=== PATIENT | male | born 1930 | race Caucasian/White ===

== ENCOUNTER 2017-07-05 12:53 | Inpatient (IN) ==
[2017-07-05] MEDS ORDERED: ONDANSETRON 4 MG/2 ML VIAL IV STA (13:15)
[2017-07-05] MEDS ORDERED: HYDROmorphone 2 MG/1 ML VIAL IV STA ×2 (13:19→14:37)
[2017-07-05] MEDS ORDERED: ONDANSETRON 4 MG/2 ML VIAL ONE (13:48)
[2017-07-05] MEDS ORDERED: HYDROmorphone 2 MG/1 ML VIAL ONE ×2 (13:49→14:58)
--- NOTE | 2017-07-05 13:49 | CT Report ---
CT of the head without contrast. Indication: Headache. There is calcific plaque present within the intracranial internal carotid arteries and vertebral arteries. There is mild mucosal thickening within the ethmoid and sphenoid sinuses. There is generalized prominence of the ventricles and sulci consistent with atrophy of aging. There is bilateral basal ganglial calcification. There are moderate areas of low density within the periventricular white matter. No mass effect or midline shift. There is a lacunar infarct within the left posterior internal capsule. No cortical infarcts are visible. There is no evidence of acute hemorrhage. Impression: Moderate changes of chronic microvascular ischemia. Remote left internal capsule lacunar infarct. Mild paranasal sinus disease. The CT exam was performed using one or more of the following dose reduction techniques: Automated exposure control, adjustment of the mA and/or kV according to patient size, or use of iterative reconstruction technique. PROCEDURE INTERPRETED AT [facility] DEPARTMENT OF RADIOLOGY Final Report Signed by: Dr. Huyen Khan
--- NOTE | 2017-07-05 13:54 | CT Report ---
CT of the cervical spine without contrast. Indication: Neck pain. Axial images were obtained with sagittal and coronal 2-D reconstructions. No previous study. The appearance of the craniovertebral junction is within normal limits. There is bilateral carotid bifurcation calcification. The normal curvature and alignment of the cervical spine is demonstrated. The osseous structures are diffusely demineralized. There is prominent multilevel facet arthropathy, worse to the left. At C2-C3, there is posterior disc bulging and calcification in the anterior longitudinal ligament. At C3-C4, there is loss of disc space height posteriorly. There is anterior osteophyte formation and posterior disc bulging with osteophytes and disc calcification. At the 4-C5, there is exuberant anterior osteophyte formation, loss of disc space height, degenerative endplate change, mild posterior osteophyte formation and posterior disc bulging. There is bony neural foraminal narrowing bilaterally. At C5-C6, there is almost complete loss of disc space height, degenerative endplate change, and bridging osteophytes. At C6-C7, there is almost complete loss of disc space height, anterior and posterior osteophyte formation, and calcification in the anterior longitudinal ligament. There is right bony neural foraminal narrowing. At C7-T1 and T1-T2, there is exuberant anterior osteophyte formation. There is calcified disc bulging at the upper thoracic levels. No evidence of fracture or facet dislocation. Impression: Prominent multilevel spondylitic disease. The CT exam was performed using one or more of the following dose reduction techniques: Automated exposure control, adjustment of the mA and/or kV according to patient size, or use of iterative reconstruction technique. PROCEDURE INTERPRETED AT [facility] DEPARTMENT OF RADIOLOGY Final Report Signed by: Dr. Huyen Khan
[2017-07-05 14:42] LABS: Basophils % 0.2 % (0.0-0.8); Hematocrit 44.4 VOL% (42.0-52.0); Hemoglobin 14.9 GM/DL (14.0-18.0); Immature Granulocytes % 0.6 %; Immature Granulocytes Absolute 0.07 #; Lymphocytes # 0.7 10*3/uL (1.4-4.0); Lymphocytes % 6.4 % (21.2-54.2); Mean Corpuscular HGB Conc 33.6 GM/DL (32-36); Mean Corpuscular Hemoglobin 33 PG (27-34); Mean Corpuscular Volume 98.7 FL (87-102); Mean Platelet Volume 10.3 FL (9.6-12.0); Monocytes # 0.8 10*3/uL (0.11-0.8); Monocytes % 7.2 % (1.7-12.7); Neutrophils # 9.6 10*3/uL (1.4-7.4); Neutrophils % 85.6 % (38.7-73.9); Platelet Count 123 T/CUMM (130-400); Red Cell Distribution Width 12.4 % (9.3-17.3); White Blood Count 11.2 T/CUMM (4-12)
[2017-07-05 14:54] LABS: Calcium 9.4 MG/DL (8.5-10.1); Osmolality,Calculated 281.7 MOS/KG (273-304)
[2017-07-05] MEDS ORDERED: VANCOMYCIN INJ 1,000 MG in SODIUM CHLORIDE 0.9% 250 ML IV STA (15:15)
[2017-07-05] MEDS ORDERED: LEVOFLOXACIN INJ 500 MG in PREMIX 1 EACH IV STA (15:15)
[2017-07-05] MEDS ORDERED: ONDANSETRON 4 MG/2 ML VIAL IV PRN (15:35)
--- NOTE | 2017-07-05 15:35 | Emergency Department Note ---
Jossue Duque Brittany, am scribing for, and in the presence of, Bashir Shi MD 13:22. Jose Guadalupe Duque Doug C, MD, personally performed the services described in this documentation, ascribed by Mary Lou Marcum in my presence, and it is both accurate and complete [id number] . Arrival - Arrival Chief Complaint: Neck Pain / Injury Stated Complaint: NOT ABLE TO MOVE HEAD ED Nursing Triage Note: c/o not being able to move neck and neck pain. states that yesterday patient had some n/v and chills. She states during the night he got to where he couldn't move neck. Mode of Arrival: Wheelchair Limitations: No Limitations Source: Patient, RN Notes Reviewed Time Seen by Provider: 07/05/17 13:14 - History of Present Illness HPI Narrative: Patient 86-year-old white male presents to emergency room complaining of severe left neck pain that started last night. states that he had some fever and chills yesterday his neck pain seems to follow this. Patient denies any falls or injuries. He has noticed some tingling and weakness in his left upper extremity. He does have a history of cervical disc disease and lumbar disc disease. He denies any difficulty with bowel or bladder problems. He has not had any urinary symptoms and states is not having any respiratory symptoms that may be contributing to his fever. Onset (ago): day(s) (1) Consistency: constant Severity: severe Severity scale (1-10): 9 Quality: aching Allergies/Adverse Reactions: Allergies Allergy/AdvReac Type Severity Reaction Status Date / Time No Known Allergies Allergy Unverified 07/05/17 13:00 Review of System - Review of System 12 point system: reviewed and no additional remarkable complaints except as stated - Review of System Constitutional: Present: chills, fever, weakness Eyes: Absent: vision change Head/Ears/Nose/Throat: Absent: nasal drainage, sore throat Respiratory: Absent: respiratory distress Cardiovascular: Absent: chest pain Gastrointestinal: Absent: abdominal pain, nausea, vomiting, diarrhea, constipation Genitourinary male: Absent: urgency, dysuria, frequency Musculoskeletal: Present: back pain, neck pain Skin: Absent: rash Neurological: Present: paresthesias (L arm). Absent: headache Psychiatric: Absent: anxiety, depression Hematological/Lymphatic: Absent: easy bleeding, easy bruising Medical,Surgical,& Family Hx - Medical History Cardio: History of: Hypertension Musculoskeletal: History of: Back/Neck Problems, Musculoskeletal Problems (hx dvt) - Surgical History Surgical History: noncontributory - Family History Family History: noncontributory - Social History Smoking Status: Never smoker Frequency of Alcohol Use: None Type of Drug Use: None Exam Vital Signs: Vital Signs Temperature 99.1 F 07/05/17 14:18 Pulse Rate 75 07/05/17 14:18 Respiratory Rate 18 07/05/17 14:18 Blood Pressure 170/108 07/05/17 14:18 O2 Sat by Pulse Oximetry 96 07/05/17 12:56 - General General appearance: alert, in distress (appears uncomfortable secondary to pain) - Head Head exam: Present: atraumatic, normocephalic, normal inspection - Eye Eye exam: Present: normal appearance, PERRL, EOMI - ENT ENT exam: Present: normal exam, normal oropharynx - Neck Neck exam: Present: trachea midline, tenderness (TTP at the left ). Absent: full ROM (limited secondary to pain) - Chest Chest inspection: Present: normal inspection, symmetric chest wall rise - Respiratory Respiratory exam: Present: normal lung sounds bilaterally. Absent: respiratory distress - Cardiovascular Cardiovascular exam: Present: regular rate, normal rhythm, normal heart sounds. Absent: murmur, rubs, gallop - Abdominal Exam Abdominal exam: Present: soft, normal bowel sounds. Absent: tenderness - Extremities Exam Extremities exam: Absent: normal inspection (decreased fiscal services manager on the left compared to the right) - Back Exam Back exam: Present: normal inspection - Neurological Exam Neurological exam: Present: alert, oriented X3, CN II-XII intact, motor sensory deficit (decreased fiscal services manager on the left compared to the right) - Psychiatric Psychiatric exam: Present: normal affect, normal mood - Skin Skin exam: Present: warm, dry Course Course Narrative: Patient's clinical presentation, laboratory and radiographic findings were discussed with Dr. Dowell. Patient be admitted an MRI will be ordered. Cultures and IV antibiotics were given. Results - Labs CBC & BMP: 07/05/17 14:29 07/05/17 14:29 Lab Results: I have reviewed the patients labs Labs: Laboratory Tests 07/05/17 14:29 WBC 11.2 RBC 4.50 Hgb 14.9 Hct 44.4 Plt Count 123 L Neut % (Auto) 85.6 H Lymph % (Auto) 6.4 L Neut # (Auto) 9.6 H Lymph # (Auto) 0.7 L Laboratory Tests 07/05/17 14:29 Sodium 138 Potassium 4.0 Chloride 104 Carbon Dioxide 28 BUN 26 H Creatinine 1.50 H Glucose 126 H C-Reactive Protein 12.10 H - Diagnostic Findings Procedure: CT: report reviewed by me (CT Head: Moderate changes of chronic microvascular ischemia. Remote left internal capsule lacunar infarct. Mild paranasal sinus disease. Cervical Spine CT: Prominent multilevel spondylitic disease.) Disposition Clinical Impression: Cervical pain (neck), Febrile illness, acute Case discussed with: patient, patient's family Disposition: Still a Patient Condition: Guarded Time of Disposition: 15:35
[2017-07-05 15:38] LABS: INR 1.9; PT Patient Result 20.5 SECS
[2017-07-05 15:51] LABS: Sedimentation Rate-Westergren 40 MM/HR (0-20)
--- NOTE | 2017-07-05 16:03 | Family Practice History&Phys ---
Assessment and Plan (1) Cervical pain (neck) Status: Acute Assessment and plan: severe, getting IV pain meds, MRI c-spine, 2. febrile illness, on Iv Abx, blood cx drawn, 3. HTN, bp high, add norvasc and prn IV hydralazine Current Visit: Yes (2) Febrile illness, acute Status: Acute Current Visit: Yes (3) Hypertension, essential Status: Acute Current Visit: Yes (4) Chronic back pain Status: Chronic Current Visit: Yes History of Present Illness Chief complaint: severe neck pain History of present illness: Mr. Spangler is a 86 year old male PCP: , pt was brought in by the to ER, for severe neck pain since yesterday PM, got worse this Am, pt is unable to move the neck cause of pain, is 10/10 in intensity, does not give any recent neck trauma or head trauma, had fever with chills and sweating, had nausea and vomiting,also has lt UE tingling, weakness, also c/o left periauricular pain, no chest pain ,sob, or cough, no new vision changes, Recently had dental procedure at lower jaw, teeth were removed last week, urine, BM regular, no incontinence, has h/o chronic back pain, OA multiple joints, Allergies Allergy/AdvReac Type Severity Reaction Status Date / Time No Known Allergies Allergy Unverified 07/05/17 13:00 - Constitutional Constitutional: Present: as per HPI - EENT Eyes: Present: as per HPI Ears: Present: as per HPI Nose, mouth and throat: Present: as per HPI - Cardiovascular Cardiovascular: Present: as per HPI - Respiratory Respiratory: Present: as per HPI - Gastrointestinal Gastrointestinal: Present: as per HPI - Genitourinary Genitourinary: Present: as per HPI - Musculoskeletal Musculoskeletal: Present: as per HPI - Neurological Neurological: Present: as per HPI - Psychiatric Psychiatric: Present: as per HPI - Endocrine Endocrine: Present: as per HPI - Hematologic/Lymphatic Hematologic/Lymphatic: Present: as per HPI Medical,Surgical,& Family Hx - Medical History Cardio: History of: Hypertension Musculoskeletal: History of: Back/Neck Problems, Musculoskeletal Problems (hx dvt) - Social History Smoking Status: Never smoker Frequency of Alcohol Use: None Type of Drug Use: None Exam - Constitutional Vitals: Period Temp Pulse Resp BP Sys/Sotelo Pulse Ox Last 24 Hr 99.1 F-99.1 F 75-75 18-18 170-170/108-108 96 Exam: Examination:pt examined in the Er GENERAL: Alert, awake oriented, in no acute distress , elderly male pt, is unable to move neck , lying in the bed, HEENT: TM WNL at left,rt external ear ernesto with mild erythema,TM retracted , tender around left periauricular area, PERRLA. EOMI. Mucous membranes are moist. NECK: not allowing to examine c-spine, keeping neck stiff, unable to move, No JVD. No carotid bruit. No thyromegaly. CVS: Regular rate and rhythm. S1 and S2 are normal. RESPIRATORY: Clear to ausculation bilaterally , No wheezes, rales or rhonchi. ABDOMEN: Soft and nontender. Bowel sounds are present. No hepatosplenomegaly. EXT: has dry hyperkeratinised, skin at BL LE,at ankle and lower legs, GEOSPATIAL APPLICATIONS DEVELOPER: Patient is awake, alert and oriented, Cranial nerves 2-12 grossly intact. Motor strength normal 5/5 all extremities, Results - Labs CBC & BMP: 07/05/17 14:29 07/05/17 14:29 Lab Results: I have reviewed the past 24 hour labs - Diagnostic Findings Procedure: Chest x-ray: report reviewed by me, image reviewed by me, CT: report reviewed by me, image reviewed by me
[2017-07-05] MEDS ORDERED: LEVOFLOXACIN INJ 100 ML IV ONE (17:00)
[2017-07-05] MEDS ORDERED: KETOROLAC 30 MG/1 ML VIAL ONE (17:00)
[2017-07-05] MEDS: LEVOFLOXACIN INJ 500 MG in PREMIX 1 EACH IV SCH (17:30)
[2017-07-05] MEDS: SODIUM CHLORIDE 0.45% 1,000 ML IV SCH (17:57)
[2017-07-05] MEDS: ENOXAPARIN 40 MG/0.4 ML SYRINGE SUBCUT SCH (18:06)
[2017-07-05] MEDS: KETOROLAC 30 MG/1 ML VIAL IV STA ×2 (18:07→18:47)
[2017-07-05] MEDS: VANCOMYCIN INJ 1,500 MG in SODIUM CHLORIDE 0.9% 500 ML IV SCH (19:18)
[2017-07-05] MEDS: DOCUSATE SODIUM 100 MG CAPSULE PO SCH (20:48)
[2017-07-05] MEDS ORDERED: hydrALAZINE 20 MG/1 ML VIAL IV PRN (20:51)
[2017-07-05] MEDS ORDERED: amLODIPine 10 MG TABLET PO ONE (20:51)
[2017-07-05] MEDS: HYDROmorphone 2 MG/1 ML VIAL IV PRN (20:57)
[2017-07-05] MEDS: KETOROLAC 30 MG/1 ML VIAL IV PRN (23:38)
[2017-07-06] MEDS: ACETAMINOPHEN 325 MG TABLET PO PRN (05:34)
[2017-07-06] MEDS: HYDROmorphone 2 MG/1 ML VIAL IV PRN ×4 (05:38→20:47)
[2017-07-06 05:57] LABS: Basophils % 0.1 % (0.0-0.8); Calcium 8.6 MG/DL (8.5-10.1); Hematocrit 41.3 VOL% (42.0-52.0); Immature Granulocytes % 0.5 %; Immature Granulocytes Absolute 0.05 #; Lymphocytes # 0.9 10*3/uL (1.4-4.0); Lymphocytes % 9.3 % (21.2-54.2); Magnesium 1.7 MG/DL (1.8-2.4); Mean Corpuscular HGB Conc 33.9 GM/DL (32-36); Mean Corpuscular Hemoglobin 34 PG (27-34); Mean Corpuscular Volume 98.8 FL (87-102); Mean Platelet Volume 10.7 FL (9.6-12.0); Monocytes # 1.2 10*3/uL (0.11-0.8); Monocytes % 12.1 % (1.7-12.7); Neutrophils # 7.8 10*3/uL (1.4-7.4); Osmolality,Calculated 279.8 MOS/KG (273-304); Platelet Count 116 T/CUMM (130-400); Potassium 5.1 MMOL/L (3.5-5.1); Red Blood Count 4.18 MC/CUMM (3.8-5.5); Red Cell Distribution Width 12.4 % (9.3-17.3)
[2017-07-06 06:12] LABS: Platelet Estimate Decreased
[2017-07-06 06:13] LABS: Giant Platelets Few; Hypochromasia Slight
[2017-07-06] MEDS: DOCUSATE SODIUM 100 MG CAPSULE PO SCH ×2 (08:25→20:47)
[2017-07-06] MEDS: PANTOPRAZOLE 40 MG TABLET PO SCH (08:26)
[2017-07-06] MEDS: amLODIPine 10 MG TABLET PO SCH (08:26)
--- NOTE | 2017-07-06 09:21 | Family Practice Progress Note ---
Family Practice - PN: Subj Interval history: PCP: Dr. Catherine pt admitted for severe neck pain, acute febrile illness has h/o chronic back pain, OA multiple joints, noted to have high blood pressure , pt seen and examined on 2 E. floor , is going for MRI this a.m. lying in bed, unable to move the neck still, T-max 102.2 F noted in past 24 hours, Mentions he still hurting at the neck, 07/22, did not get good sleep Exam (Progress Note) - Constitutional Vitals: Period Temp Pulse Resp BP Sys/Sotelo Pulse Ox Last 24 Hr 98.3 F-102.2 F 75-108 18-24 130-170/77-108 90-96 Exam: Examination: GENERAL: Alert, awake oriented, in no acute distress , elderly male pt, is unable to move neck , lying in the bed, HEENT: TENDER at around the left periauricular region. PERRLA. EOMI. Mucous membranes are moist. NECK: not allowing to examine c-spine, keeping neck stiff, unable to move, No JVD. No carotid bruit. No thyromegaly. Tender scalene muscles, left>rt CVS: Regular rate and rhythm. S1 and S2 are normal. RESPIRATORY: Clear to ausculation bilaterally , No wheezes, rales or rhonchi. ABDOMEN: Soft and nontender. Bowel sounds are present. No hepatosplenomegaly. EXT: No edema CLINICAL EDITOR: Patient is awake, alert and oriented, Cranial nerves 2-12 grossly intact. Motor strength normal 5/5 all extremities, Results - Labs CBC & BMP: 07/06/17 05:05 07/06/17 05:05 Lab Results: I have reviewed the past 24 hour labs Assessment and Plan (1) Cervical pain (neck) Status: Acute Assessment and plan: severe, getting IV pain meds, MRI C-spine/brain this a.m. 2. febrile illness, on Iv Abx, blood cx drawn, continue IV fluids 3. HTN, bp high, norvasc and prn IV hydralazine 4. Replace magnesium. Current Visit: Yes (2) Febrile illness, acute Status: Acute Current Visit: Yes (3) Hypertension, essential Status: Acute Current Visit: Yes (4) Chronic back pain Status: Chronic Current Visit: Yes
[2017-07-06] MEDS: KETOROLAC 30 MG/1 ML VIAL IV PRN ×3 (10:56→22:55)
[2017-07-06] MEDS ORDERED: MAGNESIUM SULF RIDER 4 GM in PREMIX 1 EACH IV PRN (12:29)
[2017-07-06] MEDS ORDERED: MAGNESIUM SULF RIDER 2 GM in PREMIX 1 EACH IV PRN (12:29)
--- NOTE | 2017-07-06 12:32 | Magnetic Resonance Report ---
Exam: MRI brain without contrast Exam date: 07/06/2017 12:27 PM Indication: 86-year-old male with worsening headache, febrile Comparison: MRA performed August 06, 2013 Technique: Multiplanar, multisequence magnetic resonance imaging of the brain without intravenous contrast was performed in routine fashion. Axial, coronal and sagittal images submitted for interpretation Findings: Parenchyma: No intra or extra-axial hemorrhage. No mass effect or midline shift. Generalized atrophy with confluent and patchy T2 signal abnormality throughout the deep white matter consistent with microangiopathic small vessel ischemic changes. Ventricles and sulci: Mildly prominent, felt to represent changes associated with parenchymal loss Posterior fossa: Cerebellum, brainstem and cervicomedullary junction are preserved Orbits and sinuses: Globes and orbits are intact. Periorbital and pericavernous spaces are normal. No paranasal sinus inflammatory changes. Sella: Pituitary is normal. Osseous: No abnormality of the skull base or calvarium is identified Impression: 1. 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 No acute intracranial abnormality. PROCEDURE INTERPRETED AT [facility] DEPARTMENT OF RADIOLOGY Final Report Signed by: Shiv Baca
[2017-07-06] MEDS: SODIUM CHLORIDE 0.45% 1,000 ML IV SCH (13:09)
[2017-07-06] MEDS: LEVOFLOXACIN INJ 500 MG in PREMIX 1 EACH IV SCH (15:52)
[2017-07-06] MEDS: ENOXAPARIN 40 MG/0.4 ML SYRINGE SUBCUT SCH (15:54)
[2017-07-06] MEDS: VANCOMYCIN INJ 1,500 MG in SODIUM CHLORIDE 0.9% 500 ML IV SCH (18:05)
[2017-07-07] MEDS: HYDROmorphone 2 MG/1 ML VIAL IV PRN ×2 (02:08→10:11)
[2017-07-07] MEDS: ACETAMINOPHEN 325 MG TABLET PO PRN (05:20)
[2017-07-07] MEDS: KETOROLAC 30 MG/1 ML VIAL IV PRN ×3 (05:20→20:47)
[2017-07-07 06:32] LABS: Basophils % 0.1 % (0.0-0.8); Hematocrit 36.9 VOL% (42.0-52.0); Hemoglobin 12.3 GM/DL (14.0-18.0); Immature Granulocytes % 0.6 %; Immature Granulocytes Absolute 0.06 #; Lymphocytes % 9.7 % (21.2-54.2); Mean Corpuscular HGB Conc 33.3 GM/DL (32-36); Mean Corpuscular Hemoglobin 33 PG (27-34); Mean Corpuscular Volume 99.5 FL (87-102); Mean Platelet Volume 11.3 FL (9.6-12.0); Monocytes # 1.1 10*3/uL (0.11-0.8); Neutrophils # 8.1 10*3/uL (1.4-7.4); Neutrophils % 78.6 % (38.7-73.9); Platelet Count 114 T/CUMM (130-400); Red Blood Count 3.71 MC/CUMM (3.8-5.5); Red Cell Distribution Width 12.3 % (9.3-17.3); White Blood Count 10.3 T/CUMM (4-12)
[2017-07-07 06:55] LABS: Calcium 8.4 MG/DL (8.5-10.1); Magnesium 2.2 MG/DL (1.8-2.4); Osmolality,Calculated 282.7 MOS/KG (273-304); Potassium 3.8 MMOL/L (3.5-5.1)
[2017-07-07 07:11] LABS: Band Neutrophils 2 % (0-10); Burr Cells Slight; Giant Platelets Few; Lymphocytes 6 % (20-55); Ovalocytes Slight; Platelet Estimate Decreased; Segmented Neutrophils 84 % (50-85); Total Cells Counted 100
--- NOTE | 2017-07-07 07:15 | Family Practice Progress Note ---
Family Practice - PN: Subj Interval history: Patient states he still having severe neck pain. He had MRI of the cervical spine yesterday but for some reason it has not been read. Patient still complaining of some pain in his left upper extremity. I am going to repeat his PT/INR today and in the morning. Is on vancomycin and Levaquin at present. Certainly need to see his MRI report. Exam (Progress Note) - Constitutional Vitals: Period Temp Pulse Resp BP Sys/Sotelo Pulse Ox Last 24 Hr 97 F-101.1 F 77-100 18-24 126-143/71-94 90-94 Exam: Objective well-developed gentleman who is awake and alert and able give good history. Patient states his neck pain persists. He denies any radicular pain at present but does have decreased software development project manager on the left. Cardiovascular: The heart rate is regular without murmurs. Respiratory: Lungs clear to auscultation bilaterally. Abdomen: Abdomen soft and nontender to palpation. Neuro: Patient is slightly gait decreased software development project manager on the left as compared to the right. Results - Labs CBC & BMP: 07/07/17 04:30 07/07/17 04:30 Lab Results: I have reviewed the past 24 hour labs - Diagnostic Findings Procedure: MRI: report reviewed by me (MR of the brain revealed no acute abnormality. MRI of the C-spine is yet pending.) Assessment and Plan (1) Elevated C-reactive protein (CRP) Status: Acute Assessment and plan: 07/07/2017: Results of MRI are yet pending. Patient is noted to have 102 fever yesterday. I am concerned that he may have osteomyelitis. Current Visit: Yes (2) Cervical pain (neck) Status: Acute Assessment and plan: 07/07/2017: I am awaiting his MRI C-spine results. His blood cultures were negative. Current Visit: Yes
[2017-07-07 07:21] LABS: INR 1.6; PT Patient Result 17.4 SECS
[2017-07-07 08:02] LABS: Calcium 8.5 MG/DL (8.5-10.1); Osmolality,Calculated 283.7 MOS/KG (273-304); Total Protein 6.4 G/DL (6.4-8.3)
--- NOTE | 2017-07-07 08:18 | Magnetic Resonance Report ---
Exam: MRI cervical spine without contrast Indication: Male 86 years worsening neck pain, febrile Comparison: September 13, 2013 Technique: Multisequence, multiplanar imaging of the cervical spine was performed without contrast Findings: Cervical lordosis, vertebral body heights and marrow signal are preserved. Cord signal is normal. No intra abnormalities. Disc desiccation throughout with near complete loss of disc space height at C5 C7. C2-C3: Uncovertebral and facet hypertrophy results in moderate left foraminal narrowing C3-C4: Hypertrophic endplate changes with facet arthrosis results in moderate to severe left foraminal narrowing C4-C5: Annular disc bulging with hypertrophic endplate changes and facet arthrosis results in moderate to severe right and moderate left foraminal narrowing C5-C6: Hypertrophic endplate changes with facet arthrosis results in moderate to severe bilateral foraminal narrowing C6-C7: Hypertrophic endplate changes deforms the ventral thecal sac resulting in moderate left and moderate to severe right foraminal narrowing C7-T1: Unremarkable No soft tissue abnormalities. Impression: 1. Multilevel spondylosis resulting in varying degrees of moderate to severe foraminal narrowing as detailed above, not significantly changed since interval study PROCEDURE INTERPRETED AT [facility] DEPARTMENT OF RADIOLOGY Final Report Signed by: Shiv Baca
--- NOTE | 2017-07-07 09:46 | Post Interventional Procedure ---
Pre-op diagnosis: Osteomyelitis Post-op diagnosis: same Procedure: PICC LUE Flouroscopy: 0.1 min Radiologist: Sven Arriola Anesthesia: local Specimens: none sent Estimated blood loss: none Complications: none Condition: stable Assessment and Plan - Time spent with patient Time spent with patient: Less than 30 minutes
[2017-07-07] MEDS: CHOLECALCIFEROL 1,000 UNIT TABLET PO SCH (10:13)
[2017-07-07] MEDS: CYANOCOBALAMIN 500 MCG TABLET PO SCH (10:13)
[2017-07-07] MEDS: TAMSULOSIN 0.4 MG CAPSULE PO SCH (10:14)
[2017-07-07] MEDS: PREGABALIN 75 MG CAPSULE PO SCH ×2 (10:14→15:29)
[2017-07-07] MEDS: DOCUSATE SODIUM 100 MG CAPSULE PO SCH ×2 (10:14→20:46)
[2017-07-07] MEDS: LISINOPRIL 20 MG TABLET PO SCH (10:14)
[2017-07-07] MEDS: LEVOTHYROXINE 50 MCG TABLET PO SCH (10:14)
[2017-07-07] MEDS: amLODIPine 10 MG TABLET PO SCH (10:14)
[2017-07-07] MEDS: PANTOPRAZOLE 40 MG TABLET PO SCH (10:15)
[2017-07-07] MEDS: SODIUM CHLORIDE 0.45% 1,000 ML IV SCH (10:43)
--- NOTE | 2017-07-07 12:48 | Interventional Radiology Rpt ---
IR PICC line insertion, US guide vascular access Indication: IV access for long-term IV antibiotics. Presumptive osteomyelitis. PICC LINE Description: A formal timeout was performed. Maximum sterile barrier technique was used. Sonographic evaluation of the left upper extremity demonstrates patent and compressible basilar vein. The upper arm was prepped and draped in sterile fashion. 3 cc 1% lidocaine was administered subcutaneously. Under sonographic guidance, a micropuncture needle was advanced into the vein. A captured sonographic image documents the position of the needle. Needle was exchanged over a wire for a peel-away sheath. A dual lumen power PICC, cut to 50 cm, was advanced over the wire until the tip was at the RA-SVC junction. The position of the catheter was confirmed with fluoroscopic guidance and an image stored in PACS. The wire and sheath were removed. Both ports of the PICC were aspirated and flushed with heparinized saline. The device was secured with a StatLock. Fluoroscopy: 0.1 minute. Impression: PICC line ready for immediate use. Routine catheter care. PROCEDURE INTERPRETED AT [facility] DEPARTMENT OF RADIOLOGY Final Report Signed by: Sven Arriola M.D.
[2017-07-07] MEDS: LEVOFLOXACIN INJ 500 MG in PREMIX 1 EACH IV SCH (15:29)
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
[2017-07-07] MEDS: VANCOMYCIN INJ 1,500 MG in SODIUM CHLORIDE 0.9% 500 ML IV SCH (18:07)
[2017-07-07] MEDS: WARFARIN 3 MG TABLET PO SCH (18:08)
--- NOTE | 2017-07-07 19:43 | CT Report ---
Exam: CT chest with intravenous contrast Exam date: 07/07/2017 5:04 PM Clinical History: 86 years,Male,febrile, neck and chest pain Technique: Axial computed tomography images of the chest with intravenous contrast. The CT exam was performed using one or more of the following dose reduction techniques: Automated exposure control, adjustment of the mA and/or kV according to patient size, or use of iterative reconstruction technique. Contrast: 100 mL of Omnipaque 350 administered intravenously. Comparison: No relevant comparisons Findings: Lungs: Interlobular septal thickening with groundglass consolidations throughout the right lung in a perihilar distribution. Pleural spaces: Trace bilateral pleural effusions. Heart: Four-chamber cardiomegaly with prominence of the pulmonary arteries. Pulmonary trunk is not enlarged. Trace pericardial effusion Mediastinum: Prominent paratracheal and precarinal lymph nodes. Meet strict criteria for pathologic enlargement Bones/joints: Multilevel spondylosis throughout the spinal axis. Soft tissues: Unremarkable Vasculature: Left subclavian approach central venous catheter in satisfactory position. Atheromatous changes along the aorta and coronary vessels. Lymph nodes: No pathologic adenopathy Impression: 1. Multifocal groundglass consolidations throughout the right lung perihilar distribution, likely infectious/inflammatory in etiology. Other considerations would include asymmetric pulmonary edema 2. Trace bilateral pleural and pericardial effusions 3. Reactive mediastinal lymph nodes 4. Four-chamber cardiomegaly with prominence of the pulmonary arteries, could not exclude some degree of pulmonary hypertension Exam: CT abdomen and pelvis with and without intravenous contrast Exam date: 07/07/2017 5: 48 PM Clinical History: 86 years,Male, fever, difficulty breathing, chest pain Technique: Axial computed tomography images of the abdomen and pelvis with intravenous contrast. All CT scans at this facility use one or more dose reduction techniques. Automated exposure control, MA/KV adjustment per patient size (including targeted exam Square dose is matched to indication) or iterative reconstruction technique Comparison: November 25, 2012 Findings: Lower thorax: See dedicated chest report. Abdomen: Liver: Fatty infiltration along the ligamentum teres Gallbladder and bile ducts: Prior cholecystectomy. Pancreas: Atrophic. Spleen: Hemangioma and/or degenerative nodule arising from the inferior pole is unchanged. Adrenals: No adrenal mass. Kidneys and ureters: Simple renal cyst are again noted Stomach and bowel: Scattered colonic diverticula. No associated inflammatory changes. Appendix: No primary or secondary signs to suggest appendicitis. Pelvis: Bladder: Unremarkable Reproductive: Unremarkable as visualized. Abdomen and pelvis: Intraperitoneal space: No pneumoperitoneum. No free intraperitoneal fluid Bones/joints: Marked deformity of the lower lumbar spine and pelvis, postsurgical in nature with ankylosis of the sacroiliac joints. Degenerative changes throughout the spinal axis and pelvis. Soft tissues: No mass Vasculature: No aortic aneurysm. Atheromatous calcifications noted along the aorta and branch vessels. IVC in satisfactory position Lymph nodes: No adenopathy Impression: 1. No acute findings within the abdomen or pelvis to explain patient's symptoms. 2. Other findings as discussed above PROCEDURE INTERPRETED AT [facility] DEPARTMENT OF RADIOLOGY Final Report Signed by: Shiv Baca
--- NOTE | 2017-07-07 19:45 | CT Report ---
Exam: CT neck with IV contrast Exam date: July 07, 2017 Clinical History: 86-year-old male with fever and neck pain Technique: Axial computed tomography images of the neck with intravenous contrast.The CT exam was performed using one or more of the following dose reduction techniques: Automated exposure control, adjustment of the mA and/or kV according to patient size, or use of iterative reconstruction technique. Contrast: 80 mL of Omnipaque 350 administered intravenously Comparison: No relevant prior studies available Findings: Nasopharynx: Unremarkable Oropharynx: Unremarkable. No significant tonsillar enlargement. No peritonsillar abscess Hypopharynx: Unremarkable Larynx: Unremarkable. Normal epiglottis Trachea: Unremarkable Retropharyngeal space: Unremarkable Submandibular/parotid glands: Unremarkable. Normal in size, symmetry and enhancement Thyroid: Unremarkable Bone/joints: Cervical spondylosis groundglass consolidation indication: Right upper lobe, likely infectious in etiology Soft tissues: Unremarkable Vasculature: Atheromatous plaquing along the arch, origins of the great vessels and across the bifurcations. No high-grade stenosis Lymph nodes: No enlarged lymph nodes Lung apices: Groundglass consolidation centrally within the right upper lobe Impression: 1. Inflammatory changes involving the bilateral sternoclavicular joints, right greater than left. Differential considerations would include inflammatory versus septic arthritis. Correlate clinically PROCEDURE INTERPRETED AT [facility] DEPARTMENT OF RADIOLOGY Final Report Signed by: Shiv Baca
[2017-07-07] MEDS: PREGABALIN 100 MG CAPSULE PO SCH (20:46)
[2017-07-07] MEDS: traZODone 50 MG TABLET PO SCH (20:46)
[2017-07-07] MEDS: clonazePAM 0.5 MG TABLET PO SCH (20:46)
[2017-07-07] MEDS: ENOXAPARIN 40 MG/0.4 ML SYRINGE SUBCUT SCH (20:47)
[2017-07-08] MEDS: KETOROLAC 30 MG/1 ML VIAL IV PRN ×3 (05:27→22:38)
[2017-07-08 06:17] LABS: Basophils % 0.1 % (0.0-0.8); Hematocrit 36.3 VOL% (42.0-52.0); Hemoglobin 12.5 GM/DL (14.0-18.0); Immature Granulocytes % 1.2 %; Immature Granulocytes Absolute 0.11 #; Lymphocytes # 0.8 10*3/uL (1.4-4.0); Lymphocytes % 9.1 % (21.2-54.2); Mean Corpuscular HGB Conc 34.4 GM/DL (32-36); Mean Corpuscular Hemoglobin 33 PG (27-34); Mean Platelet Volume 10.5 FL (9.6-12.0); Monocytes # 0.9 10*3/uL (0.11-0.8); Monocytes % 9.6 % (1.7-12.7); Neutrophils # 7.4 10*3/uL (1.4-7.4); Platelet Count 112 T/CUMM (130-400); Red Blood Count 3.78 MC/CUMM (3.8-5.5); Red Cell Distribution Width 12.2 % (9.3-17.3); White Blood Count 9.3 T/CUMM (4-12)
[2017-07-08 06:31] LABS: INR 1.7; PT Patient Result 18.7 SECS
[2017-07-08] MEDS: LEVOTHYROXINE 50 MCG TABLET PO SCH (06:44)
--- NOTE | 2017-07-08 06:58 | Family Practice Progress Note ---
Family Practice - PN: Subj Interval history: Patient states he may be a little bit improved though he is reluctant to commit. CT scan of the chest showed patchy infiltrates and CT of the neck showed inflammatory changes in his sternoclavicular joints. Blood cultures positive for MSSA. I have consulted Dr. Barrientos. Exam (Progress Note) - Constitutional Vitals: Period Temp Pulse Resp BP Sys/Sotelo Pulse Ox Last 24 Hr 97.5 F-99.3 F 80-88 16-24 123-170/71-110 87-96 Exam: Objective well-developed gentleman who is awake and alert and able give good history. Patient states his neck still hurting but certainly appears more comfortable. Cardiovascular: The heart rate is regular without murmurs. Respiratory: Lungs clear to auscultation bilaterally. Abdomen: Abdomen soft and nontender to palpation. 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 This is unchanged from yesterday. Results - Labs CBC & BMP: 07/08/17 06:05 07/07/17 07:22 Lab Results: I have reviewed the past 24 hour labs - Diagnostic Findings Procedure: CT - chest: report reviewed by me (Right perihilar infiltrate) Assessment and Plan (1) Elevated C-reactive protein (CRP) Status: Acute Assessment and plan: 07/07/2017: Results of MRI are yet pending. Patient is noted to have 102 fever yesterday. I am concerned that he may have osteomyelitis. 07/08/2017: Patient has positive blood cultures for MSSA Current Visit: Yes (2) Cervical pain (neck) Status: Acute Assessment and plan: 07/07/2017: I am awaiting his MRI C-spine results. His blood cultures were negative. 07/08/2017: Patient is noted to have some abnormality of his sternoclavicular joints bilaterally. He is not particularly tender in this location. Current Visit: Yes
--- NOTE | 2017-07-08 10:07 | Physician Query Form ---
CLICK EDIT DOCUMENT TO SELECT QUERY ANSWER --> OK --> SIGN Lynsey Armendariz RN Clinical Maxillofacial Surgeon W) [phone] (f) [phone] [email or web address] PROVIDERS: Make your selection(s) from the choices in EACH section by typing an "x" and enter comments in the comment section. Please use your independent medical judgment in providing your response. This request does not imply that any particular answer is desired or expected. CLINICAL INDICATORS: (Providers should not edit this section) Based on lab results of creatinine on admission of 1.50 with a GFR of 57 and decreased to 1.20. Pt. treated with IV fluids of 1/2 Normal Saline. Clarify which of the following most accurately represents the patient's renal status: ( ) Acute kidney injury (non-traumatic) ( ) Acute renal failure ( x) Acute renal failure with underlying Chronic Kidney Disease (CKD) - please provide stage below ( ) CKD - please provide stage below ( ) Other, please specify: ( ) Clinically unable to determine Chronic Kidney Disease Stages Source: National Kidney Disease Foundation ( ) Stage I (eGFR > or = 90) (x ) Stage II (eGFR 60 - 89) ( ) Stage III (eGFR 30 - 59) ( ) Stage IV (eGFR 15 - 29) ( ) Stage V (eGFR < 15 or dialysis) COMMENTS: PLEASE ALSO DOCUMENT RESPONSE IN PROGRESS NOTES AND/OR DISCHARGE SUMMARY Use of terms such as suspected, likely, or probable (associated with a specific diagnosis that is being evaluated, monitored, or treated as if it exists) are acceptable and can be restated in the discharge summary if not ruled out. MTDD
[2017-07-08] MEDS: CYANOCOBALAMIN 500 MCG TABLET PO SCH (10:38)
[2017-07-08] MEDS: CHOLECALCIFEROL 1,000 UNIT TABLET PO SCH (10:38)
[2017-07-08] MEDS: TAMSULOSIN 0.4 MG CAPSULE PO SCH (10:38)
[2017-07-08] MEDS: DOCUSATE SODIUM 100 MG CAPSULE PO SCH ×2 (10:39→21:07)
[2017-07-08] MEDS: LISINOPRIL 20 MG TABLET PO SCH (10:39)
[2017-07-08] MEDS: amLODIPine 10 MG TABLET PO SCH (10:39)
[2017-07-08] MEDS: PREGABALIN 75 MG CAPSULE PO SCH ×2 (10:41→20:04)
[2017-07-08] MEDS: ACETAMINOPHEN 325 MG TABLET PO PRN (10:42)
[2017-07-08] MEDS: PANTOPRAZOLE 40 MG TABLET PO SCH (10:43)
[2017-07-08] MEDS: LEVOFLOXACIN INJ 500 MG in PREMIX 1 EACH IV SCH (11:25)
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
[2017-07-08] MEDS: SODIUM CHLORIDE 0.45% 1,000 ML IV SCH ×2 (14:14)
--- NOTE | 2017-07-08 15:43 | Infectious Disease Consult ---
Assessment and Plan (1) MSSA (methicillin susceptible Staphylococcus aureus) septicemia Status: Acute Assessment and plan: MSSA septicemia. Because of the acute onset of fever and neck pain end of last week I am suspicious that he may have a spinal infection. He may be too early to show up on imaging studies. Recommendations: 1. De-escalate from vancomycin to oxacillin 2 g IV every 4 hours 2. Repeat blood cultures 2 sets 3. Echocardiogram to look for endocarditis 4. This patient will need intravenous antibiotic therapy for at least 4 weeks from date of negative blood cultures. 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 Thank you very much for the consult. Will follow. Discussed with patient's at bedside Current Visit: Yes (2) Cervical pain (neck) Status: Acute Current Visit: Yes (3) Pneumonia involving right lung Status: Acute Assessment and plan: He has apparent pneumonia in the right lung base on the CT chest findings; not sure if MSSA is the cause.. Agree with empiric levofloxacin. Current Visit: Yes History of Present Illness Chief complaint: Positive blood culture History of present illness: Mr. Spangler is a 86 year old male presented to hospital 3 days ago because of acute onset severe pain to the posterior neck. He also is having chills fever and generalized malaise at home. Blood cultures done on admission came back positive for MSSA in 1 of 2 sets. I am asked to assist with antibiotics. Patient denies any invasive intervention to his neck at the pain management clinic that he attends. In fact he has not had any medical procedures done in recent times. 2 years ago he had knees replaced and also cholecystectomy about 1 year ago. In the past patient had a spinal stimulator. The pump was removed some years ago but the leads remain in situ. Home Medications Medication Instructions Recorded Confirmed Type Cholecalciferol (Vitamin D3) 2,000 unit PO DAILY 07/06/17 07/07/17 History [Vitamin D3] Cyanocobalamin (Vitamin B-12) 1,000 mcg PO DAILY 07/06/17 07/07/17 History [Vitamin B-12] Levothyroxine Sodium [Levoxyl] 50 mcg PO DAILY 07/06/17 07/07/17 History Lisinopril 30 mg PO DAILY 07/06/17 07/06/17 History Oxycodone HCl/Acetaminophen 1 tablet PO TID PRN 07/06/17 07/06/17 History [Percocet 10-325 mg Tablet] Pregabalin [Lyrica] 75 mg PO 0900,1500 07/06/17 07/06/17 History Pregabalin [Lyrica] 100 mg PO BEDTIME 07/06/17 07/06/17 History Tamsulosin HCl 0.4 mg PO DAILY 07/06/17 07/06/17 History Trazodone HCl 50 mg PO BEDTIME 07/06/17 07/06/17 History Warfarin Sodium 3 mg PO MOTH 07/06/17 07/07/17 History Warfarin Sodium 4 mg PO SUTUWEFRSA 07/06/17 07/07/17 History clonazePAM TAB [KlonoPIN] 0.5 mg PO BEDTIME 07/06/17 07/07/17 History Allergies Allergy/AdvReac Type Severity Reaction Status Date / Time No Known Allergies Allergy Unverified 07/05/17 13:00 12 point system: reviewed and no additional remarkable complaints except as stated (Per HPI) Medical,Surgical,& Family Hx - Medical History Cardio: History of: Cardiac Dysrhythmia, Hypertension, Cardiovascular Problems ( DVT) Psychological: History of: Depression Endocrine: History of: Thyroid Disorder Musculoskeletal: History of: Back/Neck Problems, Musculoskeletal Problems (hx dvt) - Social History Smoking Status: Never smoker Frequency of Alcohol Use: None Type of Drug Use: None Infectious Disease Exam H&P - Constitutional Vitals: Vital Signs Temp Pulse Resp BP Pulse Ox 98.8 F 93 H 20 135/96 90 L 07/08/17 12:00 07/08/17 12:00 07/08/17 12:00 07/08/17 12:00 07/08/17 12:00 Intake and Output 07/07/17 07/08/17 07/08/17 23:59 07:59 15:59 Intake Total 960 / 960 240 / 240 100 / 100 Balance 960 / 960 240 / 240 100 / 100 Intake: IV 600 / 600 100 / 100 Levaquin Inj 500 mg In 100 / 100 100 / 100 Premix 1 Each @ 100 mls/ hr IV Q24H GUI Rx#: [id number] Vancomycin Inj 5,000 mg 500 / 500 In Ns 500 ml @ 250 mls/hr IV Q24H GUI Rx#: [id number] Oral 360 / 360 240 / 240 Other: Voiding Method Toilet Toilet # Voids 2 2 Weight 98.384 kg Patient Weight 07/08/17 23:59 Weight 98.384 kg Exam: General: Patient uncomfortable from neck pain HEENT: Mucous membranes pink and moist, anicteric acyanotic, SARA, no oral exudates Neck: Stiff due to pain, no thyroid gland enlargement, no tenderness on palpation of both sternal clavicular joints Respiratory system: Breath sounds vesicular, no crepitations or wheezes Cardiovascular: Normal S1 and S2, no murmurs appreciated Abdomen: Normal bowel sounds, soft nontender throughout, no organomegaly or mass Genitourinary: No suprapubic pain or bladder distention Extremities: no edema Skin: No rash Reports - Labs CBC & BMP: 07/08/17 06:05 07/07/17 07:22 Labs: Laboratory Results - last 24 hr 07/07/17 07/08/17 07/08/17 18:39 06:05 06:05 WBC 9.3 RBC 3.78 L Hgb 12.5 L Hct 36.3 L MCV 96.0 MCH 33 MCHC 34.4 RDW 12.2 Plt Count 112 L MPV 10.5 Neut % (Auto) 80.0 H Lymph % (Auto) 9.1 L Villalba % (Auto) 9.6 Eos % (Auto) 0.0 Baso % (Auto) 0.1 Neut # (Auto) 7.4 Lymph # (Auto) 0.8 L Villalba # (Auto) 0.9 H Eos # (Auto) 0.0 Baso # (Auto) 0.0 Immature Gran % 1.2 Nucleated RBC % 0.0 Immature Gran # 0.11 Nucleated RBCs # 0.00 Immature Plt Fraction 0.0 INR PT Patient/Control Mix POC Glucose C-Reactive Protein 19.20 H Vancomycin Trough 25.0 H 07/08/17 07/08/17 06:05 08:05 WBC RBC Hgb Hct MCV MCH MCHC RDW Plt Count MPV Neut % (Auto) Lymph % (Auto) Villalba % (Auto) Eos % (Auto) Baso % (Auto) Neut # (Auto) Lymph # (Auto) Villalba # (Auto) Eos # (Auto) Baso # (Auto) Immature Gran % Nucleated RBC % Immature Gran # Nucleated RBCs # Immature Plt Fraction INR 1.7 PT Patient/Control Mix 18.7 POC Glucose 143 H C-Reactive Protein Vancomycin Trough - Reports Microbiology: Microbiology 07/05/17 15:50 Blood Culture - Final Blood Staphylococcus aureus 07/07/17 Unknown MRSA (PCR) - Final Blood MRSA Negative Staph aureus Positive - Diagnostic Findings Procedure: CT - chest: image reviewed by me, report reviewed by me (Scattered groundglass opacities throughout right lung), CT: report reviewed by me, MRI: report reviewed by me (No spinal inflammation/infection, inflammation about the sternoclavicular joints)
[2017-07-08] MEDS: OXACILLIN 2,000 MG in SODIUM CHLORIDE 0.9% 100 ML IV SCH ×2 (20:04→20:27)
[2017-07-08] MEDS: WARFARIN 4 MG TABLET PO SCH (20:17)
[2017-07-08] MEDS: ENOXAPARIN 40 MG/0.4 ML SYRINGE SUBCUT SCH (21:07)
[2017-07-08] MEDS: PREGABALIN 100 MG CAPSULE PO SCH (21:07)
[2017-07-08] MEDS: clonazePAM 0.5 MG TABLET PO SCH (21:07)
[2017-07-08] MEDS: traZODone 50 MG TABLET PO SCH (21:07)
[2017-07-09] MEDS: OXACILLIN 2,000 MG in SODIUM CHLORIDE 0.9% 100 ML IV SCH ×6 (00:09→20:14)
[2017-07-09] MEDS: KETOROLAC 30 MG/1 ML VIAL IV PRN (04:37)
[2017-07-09] MEDS: SODIUM CHLORIDE 0.45% 1,000 ML IV SCH (05:48)
[2017-07-09] MEDS ORDERED: VANCOMYCIN INJ 1,500 MG in SODIUM CHLORIDE 0.9% 500 ML IV SCH (06:00)
[2017-07-09] MEDS: LEVOTHYROXINE 50 MCG TABLET PO SCH (06:30)
--- NOTE | 2017-07-09 07:09 | Family Practice Progress Note ---
Family Practice - PN: Subj Interval history: Patient states she is feeling a little dyspneic and has some wheezing this morning. A CT of the chest did show right sided interstitial infiltrate which may be the source of his septicemia. I am going to repeat a chest x-ray on him today and start albuterol therapy. Pulmonary will be consulted. Exam (Progress Note) - Constitutional Vitals: Period Temp Pulse Resp BP Sys/Sotelo Pulse Ox Last 24 Hr 97.2 F-99 F 54-104 18-24 128-145/71-96 90-98 Exam: Objective well-developed gentleman who is awake and alert and able give good history. Patient states his neck still hurting but certainly appears more comfortable. Cardiovascular: The heart rate is regular without murmurs. Respiratory: Patient is noted to have minimal scattered wheeze. Abdomen: Abdomen soft and nontender to palpation. Neuro: Patient has slightly decreased chairman on the left as compared to the right. This is unchanged from yesterday. Results - Labs CBC & BMP: 07/08/17 06:05 07/07/17 07:22 Lab Results: I have reviewed the past 24 hour labs Assessment and Plan (1) Elevated C-reactive protein (CRP) Status: Suspected Assessment and plan: 07/07/2017: Results of MRI are yet pending. Patient is noted to have 102 fever yesterday. I am concerned that he may have osteomyelitis. 07/08/2017: Patient has positive blood cultures for MSSA Current Visit: Yes (2) Cervical pain (neck) Status: Suspected Assessment and plan: 07/07/2017: I am awaiting his MRI C-spine results. His blood cultures were negative. 07/08/2017: Patient is noted to have some abnormality of his sternoclavicular joints bilaterally. He is not particularly tender in this location. Current Visit: Yes (3) MSSA (methicillin susceptible Staphylococcus aureus) septicemia Status: Acute Assessment and plan: 07/09/2017: Patient is on appropriate antibiotic therapy Current Visit: Yes (4) Pneumonia involving right lung Status: Acute Assessment and plan: 07/09/2017: We will repeat chest x-ray today. I am going to ask pulmonary to see him. Albuterol therapy will be added. Current Visit: Yes
--- NOTE | 2017-07-09 08:47 | Pulmonology Consult Note ---
Assessment and Plan (1) Cervical spondylosis with radiculopathy Problem details: Long-standing neck pain with upper extremity radiculopathy Status: Acute Assessment and plan: He has chronic pain in his neck. This has been worse the last few days. He has a difficult time turning his head. MRI of the neck did not show any sign of an abscess. Current Visit: Yes (2) MSSA (methicillin susceptible Staphylococcus aureus) septicemia Status: Acute Assessment and plan: 1 of 2 positive blood cultures for MSSA. Based on this and his history, staph sepsis certainly appears to be the diagnosis. Pneumonia the likely source. He did have teeth removed 1-3 weeks prior to admission. The story changed from admission to what he told me today. He has not had any infection in the area from which the teeth were extracted. Agree with looking for endocarditis. Agree that patient needs 4 weeks of IV antibiotics, currently on oxacillin. May need a couple more weeks in view of his artificial knee joints. May require LTAC referral to finish IV antibiotics. Current Visit: Yes (3) Pneumonia involving right lung Status: Acute Assessment and plan: Has fairly extensive pneumonia in the right lung. Follow-up with x-rays. Continuing oxacillin also empirically on Levaquin. Current Visit: Yes History of Present Illness Chief complaint: Neck pain fever cough History of present illness: Mr. Spangler is a 86 year old male who was admitted 4 days ago after the acute onset of chills and fever. This was preceded by neck pain and stiffness. Patient has a history of chronic degenerative arthritis of the spine. He had 1 of 2 blood cultures positive for methicillin sensitive staph aureus. He has a right-sided pneumonia. He does have some hypoxemia. He does not have any known underlying lung or heart disease. He was hospitalized a couple of years ago at [facility] following gallbladder surgery with complications and I saw him at that time. He has had bilateral knee replacements as well. 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 Home Medications Medication Instructions Recorded Confirmed Type Cholecalciferol (Vitamin D3) 2,000 unit PO DAILY 07/06/17 07/07/17 History [Vitamin D3] Cyanocobalamin (Vitamin B-12) 1,000 mcg PO DAILY 07/06/17 07/07/17 History [Vitamin B-12] Levothyroxine Sodium [Levoxyl] 50 mcg PO DAILY 07/06/17 07/07/17 History Lisinopril 30 mg PO DAILY 07/06/17 07/06/17 History Oxycodone HCl/Acetaminophen 1 tablet PO TID PRN 07/06/17 07/06/17 History [Percocet 10-325 mg Tablet] Pregabalin [Lyrica] 75 mg PO 0900,1500 07/06/17 07/06/17 History Pregabalin [Lyrica] 100 mg PO BEDTIME 07/06/17 07/06/17 History Tamsulosin HCl 0.4 mg PO DAILY 07/06/17 07/06/17 History Trazodone HCl 50 mg PO BEDTIME 07/06/17 07/06/17 History Warfarin Sodium 3 mg PO MOTH 07/06/17 07/07/17 History Warfarin Sodium 4 mg PO SUTUWEFRSA 07/06/17 07/07/17 History clonazePAM TAB [KlonoPIN] 0.5 mg PO BEDTIME 07/06/17 07/07/17 History Allergies Allergy/AdvReac Type Severity Reaction Status Date / Time No Known Allergies Allergy Unverified 07/05/17 13:00 12 point system: reviewed and no additional remarkable complaints except as stated - Constitutional Constitutional: Present: fatigue - Respiratory Respiratory: Present: cough Exam (Pulmonay) H&P - Constitutional Vitals: Period Temp Pulse Resp BP Sys/Sotelo Pulse Ox Last 24 Hr 97.1 F-99 F 54-93 18-24 114-145/71-96 90-98 Exam: Patient is afebrile. He had temperature of 102 during first hospital day. Pupils react to light. Throat is clear. Neck supple no bruits. Chest shows some rales in the right chest. Heart normal rate and rhythm no murmurs. Abdomen soft nontender no masses. Bowel sounds present. Extremities no clubbing cyanosis or edema. Calves nontender. scars over both knees Medical,Surgical,& Family Hx - Medical History Cardio: History of: Cardiac Dysrhythmia, Hypertension, Cardiovascular Problems ( DVT) Psychological: History of: Depression Endocrine: History of: Thyroid Disorder Musculoskeletal: History of: Back/Neck Problems, Musculoskeletal Problems (hx dvt) - Social History Smoking Status: Never smoker Frequency of Alcohol Use: None Type of Drug Use: None Results - Labs CBC & BMP: 07/08/17 06:05 07/07/17 07:22 Lab Results: I have reviewed the past 24 hour labs - Diagnostic Findings Procedure: Chest x-ray: image reviewed by me (Pneumonia in right upper and lower lobe. Also seen on CT a couple of days back.)
[2017-07-09] MEDS: DOCUSATE SODIUM 100 MG CAPSULE PO SCH ×2 (08:50→20:13)
[2017-07-09] MEDS: TAMSULOSIN 0.4 MG CAPSULE PO SCH (08:51)
[2017-07-09] MEDS: PREGABALIN 75 MG CAPSULE PO SCH ×2 (08:51→15:35)
[2017-07-09] MEDS: amLODIPine 10 MG TABLET PO SCH (08:51)
[2017-07-09] MEDS: CYANOCOBALAMIN 500 MCG TABLET PO SCH (08:52)
[2017-07-09] MEDS: PANTOPRAZOLE 40 MG TABLET PO SCH (08:52)
[2017-07-09] MEDS: LISINOPRIL 20 MG TABLET PO SCH (08:52)
[2017-07-09] MEDS: CHOLECALCIFEROL 1,000 UNIT TABLET PO SCH (08:53)
[2017-07-09] MEDS: LEVOFLOXACIN INJ 500 MG in PREMIX 1 EACH IV SCH (10:16)
--- NOTE | 2017-07-09 11:17 | Infectious Disease Progress ---
Assessment and Plan (1) MSSA (methicillin susceptible Staphylococcus aureus) septicemia Status: Acute Assessment and plan: MSSA septicemia. Recommendations: 1. Continue oxacillin 2. Follow-up results of repeat blood cultures 3. Follow-up echocardiogram report 4. This patient will need intravenous antibiotic therapy for at least 4 weeks from date of negative blood cultures. 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 Discussed with patient's at bedside Current Visit: Yes (2) Cervical pain (neck) Status: Suspected Current Visit: Yes (3) Pneumonia involving right lung Status: Acute Assessment and plan: He has apparent pneumonia in the right lung base on the CT chest findings; today 's chest x-ray shows significant right lung infiltrate still present. This may be the source of the MSSA septicemia. Not sure if MSSA is the cause. We can complete 5-7 days of empiric levofloxacin. Current Visit: Yes Infectious Disease - PN: Subj Interval history: Patient says he feels no better today because he still has significant neck pain. His breathing is relatively comfortable. He has not had any recurrence of fever. Appetite is fair. Infectious Disease Exam (PN) - Constitutional Vitals: Temp Pulse Resp BP Pulse Ox 97.1 F L 77 20 114/73 90 L 07/09/17 08:00 07/09/17 08:00 07/09/17 09:15 07/09/17 08:00 07/09/17 08:00 General appearance: normal weight, mild distress Exam: General appearance: To me looks a little better today, he was sitting up at the side of the bed - Eye Eye exam: Present: EOMI. no icterus Pupils: Present: SARA - ENT ENT exam: no oral exudates - Neck Neck exam: A bit stiff due to pain - Respiratory Respiratory exam: vesicular BS, no crepitations or wheezes - Cardiovascular Cardiovascular exam: regular rate and rhythm, no murmurs - GI/Abdominal GI/Abdominal exam: normal bowel sounds, soft, non-tender, no organomegaly or mass - Extremities Exam Extremities exam: no edema - Skin Skin exam: no rash Results - Labs CBC & BMP: 07/08/17 06:05 07/07/17 07:22 Lab Results: I have reviewed the past 24 hour labs
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
[2017-07-09] MEDS: ALBUTEROL 2.5 MG/3 ML NEB RESP TX SCH ×2 (13:36→19:06)
--- NOTE | 2017-07-09 14:21 | XRay Report ---
2 view chest 07/09/2017 8 AM Indication: Difficulty breathing Comparison: January 04, 2014 Findings: Cardiomediastinal contours are stable with mild cardiomegaly. Central venous catheter in satisfactory position. Development of right parenchymal consolidations throughout the upper and lower lobes. No acute osseous abnormalities. Visualized upper abdomen demonstrates no acute pathology. Impression: Multifocal right-sided pneumonia PROCEDURE INTERPRETED AT [facility] DEPARTMENT OF RADIOLOGY Final Report Signed by: Anjel Baca MD
[2017-07-09] MEDS: WARFARIN 4 MG TABLET PO SCH (17:18)
--- NOTE | 2017-07-09 17:25 | Order Completion Report ---
See report scanned to EMR
[2017-07-09] MEDS: clonazePAM 0.5 MG TABLET PO SCH (20:13)
[2017-07-09] MEDS: PREGABALIN 100 MG CAPSULE PO SCH (20:13)
[2017-07-09] MEDS: traZODone 50 MG TABLET PO SCH (20:13)
[2017-07-09] MEDS: ENOXAPARIN 40 MG/0.4 ML SYRINGE SUBCUT SCH (20:14)
[2017-07-09] MEDS: HYDROmorphone 2 MG/1 ML VIAL IV PRN (20:14)
[2017-07-10] MEDS: KETOROLAC 30 MG/1 ML VIAL IV PRN ×2 (00:22→08:18)
[2017-07-10] MEDS: OXACILLIN 2,000 MG in SODIUM CHLORIDE 0.9% 100 ML IV SCH ×7 (00:22→23:46)
[2017-07-10] MEDS: ALBUTEROL 2.5 MG/3 ML NEB RESP TX SCH ×4 (01:11→19:27)
[2017-07-10] MEDS: SODIUM CHLORIDE 0.45% 1,000 ML IV SCH ×2 (01:31→09:20)
[2017-07-10] MEDS: HYDROmorphone 2 MG/1 ML VIAL IV PRN ×2 (02:11→21:58)
[2017-07-10] MEDS: LEVOTHYROXINE 50 MCG TABLET PO SCH (06:38)
--- NOTE | 2017-07-10 07:31 | Pulmonology Progress Note ---
Pulmonary - PN: Subj Interval history: 86-year-old man with methicillin sensitive staph aureus sepsis and pneumonia. Continuing with IV antibiotics. Will need long-term treatment. Transfer to [facility] would be ideal. Apparently some insurance conflict. Doing better from pulmonary standpoint. Complains of neck pain. Has been seen by Dr. Villarreal, this is a chronic problem associated with his cervical spondylosis. Exam (Progress Note) - Constitutional Vitals: Period Temp Pulse Resp BP Sys/Sotelo Pulse Ox Last 24 Hr 97.1 F-98.3 F 71-119 18-24 95-138/50-91 90-98 Exam: Patient is afebrile alert. Sitting up in bed. Room air oxygen saturation in the mid 80s. He had his oxygen off after going to the restroom. Pupils react to light. Throat is clear. Neck supple no bruits. She does show some rales in the right chest. Left lung clear. Heart normal rate and rhythm no murmurs. Abdomen soft nontender no masses. Extremities no clubbing cyanosis or edema. Calves nontender. Results - Labs CBC & BMP: 07/08/17 06:05 07/07/17 07:22 Lab Results: I have reviewed the past 24 hour labs Assessment and Plan (1) Cervical spondylosis with radiculopathy Problem details: Long-standing neck pain with upper extremity radiculopathy Status: Acute Assessment and plan: He has chronic pain in his neck. This has been worse the last few days. He has a difficult time turning his head. MRI of the neck did not show any sign of an abscess. 07/10/2017 being managed by pain physician Dr. Villarreal. Current Visit: Yes (2) MSSA (methicillin susceptible Staphylococcus aureus) septicemia Status: Acute Assessment and plan: 1 of 2 positive blood cultures for MSSA. Based on this and his history, staph sepsis certainly appears to be the diagnosis. Pneumonia the likely source. He did have teeth removed 1-3 weeks prior to admission. The story changed from admission to what he told me today. He has not had any infection in the area from which the teeth were extracted. Agree with looking for endocarditis. Agree that patient needs 4 weeks of IV antibiotics, currently on oxacillin. May need a couple more weeks in view of his artificial knee joints. May require LTAC referral to finish IV antibiotics. 07/10/2017 patient is on oxacillin. Transthoracic echo did not show endocarditis. Needs long-term antibiotics. Agree with assessment by infectious disease. Current Visit: Yes (3) Pneumonia involving right lung Status: Acute Assessment and plan: Has fairly extensive pneumonia in the right lung. Follow-up with x-rays. Continuing oxacillin also empirically on Levaquin. 07/10/2017 follow-up chest x-rays pending. Current Visit: Yes
[2017-07-10 07:41] LABS: Basophils # 0.1 10*3/uL (0.0-0.2); Basophils % 0.6 % (0.0-0.8); Hematocrit 33.9 VOL% (42.0-52.0); Hemoglobin 11.8 GM/DL (14.0-18.0); Immature Granulocytes % 1.6 %; Immature Granulocytes Absolute 0.13 #; Lymphocytes # 1.3 10*3/uL (1.4-4.0); Lymphocytes % 15.7 % (21.2-54.2); Mean Corpuscular HGB Conc 34.8 GM/DL (32-36); Mean Corpuscular Hemoglobin 33 PG (27-34); Mean Corpuscular Volume 95.8 FL (87-102); Mean Platelet Volume 10.6 FL (9.6-12.0); Monocytes # 0.8 10*3/uL (0.11-0.8); Monocytes % 9.2 % (1.7-12.7); Neutrophils % 72.9 % (38.7-73.9); Platelet Count 179 T/CUMM (130-400); Red Blood Count 3.54 MC/CUMM (3.8-5.5); White Blood Count 8.2 T/CUMM (4-12)
[2017-07-10 08:14] LABS: Calcium 8.2 MG/DL (8.5-10.1); Potassium 3.2 MMOL/L (3.5-5.1)
[2017-07-10] MEDS: PREGABALIN 75 MG CAPSULE PO SCH ×2 (08:15→15:14)
[2017-07-10] MEDS: DOCUSATE SODIUM 100 MG CAPSULE PO SCH ×2 (08:15→21:27)
[2017-07-10] MEDS: TAMSULOSIN 0.4 MG CAPSULE PO SCH (08:15)
[2017-07-10] MEDS: amLODIPine 10 MG TABLET PO SCH (08:15)
[2017-07-10] MEDS: LISINOPRIL 20 MG TABLET PO SCH (08:16)
[2017-07-10] MEDS: PANTOPRAZOLE 40 MG TABLET PO SCH (08:16)
[2017-07-10] MEDS: CYANOCOBALAMIN 500 MCG TABLET PO SCH (08:17)
[2017-07-10] MEDS: CHOLECALCIFEROL 1,000 UNIT TABLET PO SCH (08:17)
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
[2017-07-10] MEDS: LEVOFLOXACIN INJ 500 MG in PREMIX 1 EACH IV SCH (09:18)
[2017-07-10] MEDS ORDERED: POTASSIUM CHLORIDE 20 MEQ TABLET PO ONE (13:10)
--- NOTE | 2017-07-10 16:16 | Infectious Disease Progress ---
Assessment and Plan (1) MSSA (methicillin susceptible Staphylococcus aureus) septicemia Status: Acute Assessment and plan: MSSA septicemia. Repeat blood cultures negative today. TTE without evidence of endocarditis. Recommendations: 1. Continue oxacillin 2. Follow-up results of repeat blood cultures 3. This patient will need intravenous antibiotic therapy for at least 4 weeks from date of negative blood cultures [until August 05]. 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 Discussed with patient's at bedside Current Visit: Yes (2) Cervical pain (neck) Status: Suspected Current Visit: Yes (3) Pneumonia involving right lung Status: Acute Assessment and plan: He has apparent pneumonia in the right lung base on the CT chest findings; today 's chest x-ray shows significant right lung infiltrate still present. This may be the source of the MSSA septicemia. Not sure if MSSA is the cause. We can complete 5-7 days of empiric levofloxacin. Current Visit: Yes Infectious Disease - PN: Subj Interval history: Patient starting to feel better, says neck pain is better after he got a new pain medicine. No fever. No other complaints. Infectious Disease Exam (PN) - Constitutional Vitals: Temp Pulse Resp BP Pulse Ox 98.0 F 64 22 114/66 94 L 07/10/17 11:47 07/10/17 12:36 07/10/17 12:36 07/10/17 11:47 07/10/17 12:36 General appearance: normal weight, mild distress Exam: General appearance: Less ill looking, more interactive - Eye Eye exam: Present: EOMI. no icterus Pupils: Present: SARA - ENT ENT exam: no oral exudates - Neck Neck exam: Neck more supple - Respiratory Respiratory exam: vesicular BS, no crepitations or wheezes - Cardiovascular Cardiovascular exam: regular rate and rhythm, no murmurs - GI/Abdominal GI/Abdominal exam: normal bowel sounds, soft, non-tender, no organomegaly or mass - Extremities Exam Extremities exam: no edema - Skin Skin exam: no rash Results - Labs CBC & BMP: 07/10/17 07:20 07/10/17 07:20 Lab Results: I have reviewed the past 24 hour labs (Repeat blood cultures from the negative to date)
[2017-07-10] MEDS: WARFARIN 3 MG TABLET PO SCH (17:58)
[2017-07-10] MEDS: PREGABALIN 100 MG CAPSULE PO SCH (21:27)
[2017-07-10] MEDS: ENOXAPARIN 40 MG/0.4 ML SYRINGE SUBCUT SCH (21:28)
[2017-07-10] MEDS: traZODone 50 MG TABLET PO SCH (21:28)
[2017-07-10] MEDS: clonazePAM 0.5 MG TABLET PO SCH (21:28)
[2017-07-11] MEDS: ACETAMINOPHEN 325 MG TABLET PO PRN (00:18)
[2017-07-11] MEDS: ALBUTEROL 2.5 MG/3 ML NEB RESP TX SCH ×3 (00:40→12:12)
[2017-07-11] MEDS: OXACILLIN 2,000 MG in SODIUM CHLORIDE 0.9% 100 ML IV SCH ×3 (03:36→13:15)
[2017-07-11] MEDS: HYDROmorphone 2 MG/1 ML VIAL IV PRN ×2 (04:57→09:52)
[2017-07-11] MEDS: LEVOTHYROXINE 50 MCG TABLET PO SCH (06:31)
--- NOTE | 2017-07-11 07:03 | Family Practice Progress Note ---
Family Practice - PN: Subj Interval history: Patient states he is still having severe neck pain. His chest x-ray shows severe right sided infiltrate. He certainly looks much better than his x-ray would predict. States he still wheezing and coughing up sputum. Trying to find him an LTAC bed. Exam (Progress Note) - Constitutional Vitals: Period Temp Pulse Resp BP Sys/Sotelo Pulse Ox Last 24 Hr 98.0 F-98.6 F 62-108 18-24 107-132/61-81 90-96 Exam: Objective well-developed gentleman who is awake and alert and able give good history. He is bitterly complaining of neck pain Cardiovascular: The heart rate is regular without murmurs. Respiratory: Patient is noted to have minimal scattered wheeze. Abdomen: Abdomen soft and nontender to palpation. 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 Patient is noted to have 102 fever yesterday. I am concerned that he may have osteomyelitis. 07/08/2017: Patient has positive blood cultures for MSSA Current Visit: Yes (2) Cervical pain (neck) Status: Suspected Assessment and plan: 07/07/2017: I am awaiting his MRI C-spine results. His blood cultures were negative. 07/08/2017: Patient is noted to have some abnormality of his sternoclavicular joints bilaterally. He is not particularly tender in this location. Current Visit: Yes (3) MSSA (methicillin susceptible Staphylococcus aureus) septicemia Status: Acute Assessment and plan: 07/09/2017: Patient is on appropriate antibiotic therapy 07/11/2017: Patient's on appropriate antibiotics predicted by his cultures. Current Visit: Yes (4) Pneumonia involving right lung Status: Acute Assessment and plan: 07/09/2017: We will repeat chest x-ray today. I am going to ask pulmonary to see him. Albuterol therapy will be added. 07/11/2017: Chest x-ray shows significant right-sided infiltrate. LTAC is being sought. Current Visit: Yes
[2017-07-11 08:26] LABS: PT Patient Result 77.4 SECS
[2017-07-11 08:27] LABS: INR 7.3
--- NOTE | 2017-07-11 08:49 | Pulmonology Progress Note ---
Pulmonary - PN: Subj Interval history: The patient is an 86-year-old white man that has significant right lung pneumonia. He has a methicillin sensitive staph aureus sepsis and pneumonia. He is getting IV antibiotics. His main complaint today is his neck pain. He apparently is going for an MRI. He says his cough and congestion are little better. He denies being terribly short of breath. He has not had any fever and his vital signs are stable. Exam (Progress Note) - Constitutional Vitals: Period Temp Pulse Resp BP Sys/Sotelo Pulse Ox Last 24 Hr 97.6 F-98.6 F 64-108 18-24 107-132/61-80 93-96 General appearance: normal weight, no acute distress, other (He is sitting up and looks reasonably comfortable) - Head Head exam: Present: normal inspection, normocephalic - Eye Eye exam: Present: EOMI. Absent: scleral icterus Pupils: Present: SARA - ENT ENT exam: Present: normal exam - Neck Neck exam: Present: meningismus (He does have a very stiff neck). Absent: thyromegaly - Respiratory Respiratory exam: Present: rales (He does have crackles throughout his right chest. He is moving air okay.). Absent: accessory muscle use, wheezes - Cardiovascular Cardiovascular exam: Present: regular rate and rhythm. Absent: gallop, systolic murmur - GI/Abdominal GI/Abdominal exam: Present: normal bowel sounds, soft. Absent: distended, organomegaly, tenderness - Extremities Exam Extremities exam: Absent: calf tenderness, edema - Neurological Exam Neurological exam: Present: alert, oriented X3, CN II-XII intact. Absent: motor sensory deficit - Psychiatric Psychiatric exam: Present: normal affect - Skin Skin exam: Present: warm, dry Results - Labs CBC & BMP: 07/10/17 07:20 07/10/17 07:20 Assessment and Plan (1) Hypertension, essential Status: Acute Assessment and plan: The patient's blood pressure and heart rate are stable. Current Visit: Yes (2) Cervical spondylosis with radiculopathy Problem details: Long-standing neck pain with upper extremity radiculopathy Status: Acute Assessment and plan: The patient complains of neck stiffness and pain. He is getting this evaluated. Current Visit: Yes (3) MSSA (methicillin susceptible Staphylococcus aureus) septicemia Status: Acute Assessment and plan: The patient septicemia is better and he is getting IV antibiotics. He will continue present therapy Current Visit: Yes (4) Pneumonia involving right lung Status: Acute Assessment and plan: He has a fairly significant right lung pneumonia but he seems to be breathing better. He will continue treatment. Current Visit: Yes Qualifiers: Pneumonia type: due to methicillin-sensitive Staphylococcus aureus (MSSA)
[2017-07-11] MEDS: TAMSULOSIN 0.4 MG CAPSULE PO SCH (09:53)
[2017-07-11] MEDS: CYANOCOBALAMIN 500 MCG TABLET PO SCH (09:53)
[2017-07-11] MEDS: amLODIPine 10 MG TABLET PO SCH (09:53)
[2017-07-11] MEDS: CHOLECALCIFEROL 1,000 UNIT TABLET PO SCH (09:54)
[2017-07-11] MEDS: PANTOPRAZOLE 40 MG TABLET PO SCH (09:54)
[2017-07-11] MEDS: DOCUSATE SODIUM 100 MG CAPSULE PO SCH (09:54)
[2017-07-11] MEDS: LISINOPRIL 20 MG TABLET PO SCH (09:54)
[2017-07-11] MEDS: LEVOFLOXACIN INJ 500 MG in PREMIX 1 EACH IV SCH (10:04)
[2017-07-11] MEDS: PREGABALIN 75 MG CAPSULE PO SCH (10:04)
[2017-07-11 11:39] VITALS: BP 134/79
--- NOTE | 2017-07-11 12:03 | Discharge Summary ---
Hospital Course - Hospital Course Hospital Course: Patient 86-year-old white male who was admitted with severe neck pain and febrile illness. Patient was found to have elevated CRP and positive blood cultures for MSSA. Patient found to have diffuse right-sided pneumonia as well. Patient seen in consultation with Dr. Goodman Epps and Dr. Roosevelt Barlow. Patient is going to require prolonged IV antibiotic therapy is recommended that he go to a long-term acute care facility. [facility] by [facility]. 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 [facility] Condition at Discharge: Guarded Discharge Diet: advance to your usual diet Activity: as per physical therapy Hygiene: no restrictions Weight Bearing at Discharge: full weight bearing - Discharge Medications New Acetaminophen Tab [Tylenol Tab] 650 mg PO Q6H PRN tablet PRN Reason: Fever > 100.4 Or Headache Albuterol Neb [Proventil Neb] 2.5 mg RESP TX RT Q6H amLODIPine [Norvasc] 10 mg PO DAILY tablet Enoxaparin [Lovenox] 40 mg SUBCUT Q24H syringe hydrALAZINE INJ [Apresoline Inj] 10 mg IV Q6H PRN vial PRN Reason: Blood Pressure-Increased HYDROmorphone INJ [Dilaudid Inj] 1 mg IV Q4H PRN vial PRN Reason: Pain Severe (8-10) Magnesium Sulf Diomedes [Magnesium Sulfate Inj] 2 gm IV .PER PROTOCOL PRN PRN Reason: Per Protocol Ondansetron Inj [Zofran Inj] 4 mg IV Q6H PRN vial PRN Reason: Nausea/Vomiting Oxacillin 2,000 mg IV Q4H vial Docusate Sodium Cap [Colace Cap] 100 mg PO BID capsule Levofloxacin Inj [Levaquin Inj] 500 mg IV Q24H Pantoprazole Tab [Protonix Tab] 40 mg PO DAILY tablet Continue Cholecalciferol (Vitamin D3) [Vitamin D3] 2,000 unit PO DAILY Warfarin Sodium 4 mg PO SUTUWEFRSA Levothyroxine Sodium [Levoxyl] 50 mcg PO DAILY Cyanocobalamin (Vitamin B-12) [Vitamin B-12] 1,000 mcg PO DAILY Pregabalin [Lyrica] 75 mg PO 0900,1500 Trazodone HCl 50 mg PO BEDTIME clonazePAM TAB [KlonoPIN] 0.5 mg PO BEDTIME Tamsulosin HCl 0.4 mg PO DAILY Warfarin Sodium 3 mg PO MOTH Lisinopril 30 mg PO DAILY Pregabalin [Lyrica] 100 mg PO BEDTIME No Action Oxycodone HCl/Acetaminophen [Percocet 10-325 mg Tablet] 1 tablet PO TID PRN PRN Reason: Pain - Follow Up or Referral - Forms/Instructions Additional Discharge Instructions: Hold Coumadin until INR is less than 3.0. Daily PT/INR Exam - Constitutional Vitals: Period Temp Pulse Resp BP Sys/Sotelo Pulse Ox Last 24 Hr 97.3 F-98.6 F 64-97 18-24 107-134/61-80 92-97 Exam: Objective well-developed gentleman who is awake and alert and able give good history. He is bitterly complaining of neck pain Cardiovascular: The heart rate is regular without murmurs. Respiratory: Patient is noted to have minimal scattered wheeze. Abdomen: Abdomen soft and nontender to palpation. 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 No PCP Attending physician on admission: Bashir Shi MD Consults: 07/05/17 15:35 Consult to Case Mgmt/Social Srvs [CONS] Routine Reason for Case Mgmt/Social Srvs: Discharge Planning 07/05/17 15:40 Consult to Pharmacy [CONS] Routine Reason for Pharmacy Consult: Dose/Manage Vancomycin 07/05/17 17:42 Consult to Pastoral Services [CONS] Routine Comment: Pastoral Screen: Request Degreaser Operator Visit 07/07/17 14:11 Consult to Physician [CONS] Routine Comment: Consulting Provider: Joseluis Villarreal When should Consulting Provider be notified: Now Person Notified: EMMANUEL Date Notified: 07/07/17 Time Notified: 14:35 07/07/17 17:04 Consult to Physician [CONS] Routine Comment: Consulting Provider: Stefanie Barrientos 07/09/17 07:29 Consult to Physician [CONS] Routine Comment: Consulting Provider: Roosevelt Barlow Person Notified: kirk Date Notified: 07/09/17 Time Notified: 08:46 Discharging clinician: Bashir Shi MD Expected date of discharge: 07/11/17
--- NOTE | 2017-07-11 12:13 | Infectious Disease Progress ---
Assessment and Plan (1) MSSA (methicillin susceptible Staphylococcus aureus) septicemia Status: Acute Assessment and plan: MSSA septicemia. Repeat blood cultures negative so far. TTE without evidence of endocarditis. Recommendations: Continue oxacillin until 05 August. 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 Apparently being transferred to specialty [facility] today. Discussed with patient's at bedside Current Visit: Yes (2) Cervical pain (neck) Status: Suspected Current Visit: Yes (3) Pneumonia involving right lung Status: Acute Assessment and plan: He has apparent pneumonia in the right lung base on the CT chest findings; today 's chest x-ray shows significant right lung infiltrate still present. This may be the source of the MSSA septicemia. Not sure if MSSA is the cause. He will complete 7 days of empiric levofloxacin today. Discontinue after today's dose. Current Visit: Yes Qualifiers: Pneumonia type: due to methicillin-sensitive Staphylococcus aureus (MSSA) Infectious Disease - PN: Subj Interval history: Patient says neck pain flared up a bit again today however overall he is improved. He is making a few jokes today. He has not fever. Eating relatively okay. Infectious Disease Exam (PN) - Constitutional Vitals: Temp Pulse Resp BP Pulse Ox 97.3 F L 96 H 23 134/79 92 L 07/11/17 11:15 07/11/17 11:15 07/11/17 11:15 07/11/17 11:15 07/11/17 11:15 General appearance: normal weight, no acute distress, other (He is sitting up and looks reasonably comfortable) Exam: General appearance: more interactive, jovial - Eye Eye exam: Present: EOMI. no icterus Pupils: Present: SARA - ENT ENT exam: no oral exudates - Neck Neck exam: Neck a bit more stiff today due to pain - Respiratory Respiratory exam: vesicular BS, no crepitations or wheezes - Cardiovascular Cardiovascular exam: regular rate and rhythm, no murmurs - GI/Abdominal GI/Abdominal exam: normal bowel sounds, soft, non-tender, no organomegaly or mass - Extremities Exam Extremities exam: no edema - Skin Skin exam: no rash Results - Labs CBC & BMP: 07/10/17 07:20 07/10/17 07:20 Lab Results: I have reviewed the past 24 hour labs (Blood cultures from the negative to date)
--- NOTE | 2017-07-14 10:48 | Physician Query Form ---
CLICK EDIT DOCUMENT TO SELECT QUERY ANSWER --> OK --> SIGN Lynsey Armendariz RN Clinical Hash Slinger W) [phone] (f) [phone] [email or web address] PROVIDERS: Make your selection(s) from the choices in EACH section by typing an "x" and enter comments in the comment section. Please use your independent medical judgment in providing your response. This request does not imply that any particular answer is desired or expected. CLINICAL INDICATORS: (Providers should not edit this section) Pt. admitted on 07/05/17 with acute Cervical spondylosis with radiculopathy. Sepsis was documented on 07/08/17. Temp and heart were normal on admission with temp of 99.1 and heart rate of 84. Temp increased to 102.2 and heart rate increased to 108 on 07/06/17. Please clarify if the sepsis was present on admission. Diagnosis:Sepsis Please clarify the status of (diagnosis) based on the above: (x ) The above diagnosis was present on admission ( ) The above diagnosis was NOT present on admission ( ) Other, please specify: ( ) Clinically unable to determine COMMENTS: PLEASE ALSO DOCUMENT RESPONSE IN PROGRESS NOTES AND/OR DISCHARGE SUMMARY Use of terms such as suspected, likely, or probable (associated with a specific diagnosis that is being evaluated, monitored, or treated as if it exists) are acceptable and can be restated in the discharge summary if not ruled out. MTDD
== END 2017-07-11 15:17 | DRG 871 ==
LOC: EDBD → N.ED 12:53 → N.EDINP 15:35 → N.2E 17:35
PROVIDERS: ADMIT Family Medicine; ATTEND Family Medicine